=== PATIENT | male | born 1960 ===

== ENCOUNTER → 2021-09-11 | Day surgery (SDC) | payer OTHER ==
[~2021-09-11] VITALS: Ht 175.3 cm; Wt 113.4 kg
[~2021-09-11] MED LIST: ASPIRIN EC81 MG PO; ATENOLOL25 MG PO; COLESTID 1GM TAB1 GM PO; GLYBURIDE5 MG PO; IBUPROFEN800 MG PO; LIPITOR20 MG PO; LOVAZA1 GM PO; METFORMIN HCL1000 MG PO; NEURONTIN300 MG PO; PRILOSEC20 MG PO; TOUJEO MAX300 UNIT/1 SC; VIAGRA50 MG PO; ZESTRIL2.5 M1 PO
[2021-09-11 07:51] LABS: HCT 41.4 % (42.0-52.0); HGB 13.6 g/dl (13.2-18.0); MCH 27.5 pg (25.0-31.0); MCHC 32.9 g/dL (32.0-36.0); MCV 83.8 fL (78.0-100.0); MPV 10.2 fL (6.0-9.5); RBC 4.94 M/uL (4.70-6.00); RDW 13.8 % (11.5-14.0); WBC 7.6 K/uL (4.0-10.5)
[2021-09-11 08:24] LABS: ALBUMIN 3.4 g/dL (3.4-5.0); BILIRUBIN - TOTAL 0.7 mg/dL (0.2-1.0); BUN/CREAT RATIO (CALC) 12.6 RATIO; CREATININE 0.95 mg/dL (0.67-1.17); GLOBULIN (CALCULATION) 3.6 g/dL
== END | disposition home or self-care (01) ==
LOC: FAS 06:55
PROVIDERS: Surgery
DX: Z12.11 Encounter for screening for malignant neoplasm of colon (principal); I10 Essential (primary) hypertension; E11.9 Type 2 diabetes mellitus without complications; G47.30 Sleep apnea, unspecified; E78.00 Pure hypercholesterolemia, unspecified; F17.200 Nicotine dependence, unspecified, uncomplicated; Z86.010 Personal history of colon polyps; Z99.89 Dependence on other enabling machines and devices; Z79.82 Long term (current) use of aspirin; Z79.1 Long term (current) use of non-steroidal anti-inflammatories (NSAID); Z79.4 Long term (current) use of insulin; Z79.899 Other long term (current) drug therapy
CPT/HCPCS: G0105; 36415; 80053; J2250; J7120